=== PATIENT | female | born 1990 ===

== ENCOUNTER 2018-02-11 11:57 | Emergency (ER) | payer OTHER ==
[2018-02-12 02:32] VITALS: BP 142/86
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
== END 2018-02-11 13:30 | disposition home or self-care (01) ==
DX: S16.1XXA Strain of muscle, fascia and tendon at neck level, initial encounter (principal); S20.219A Contusion of unspecified front wall of thorax, initial encounter; S40.011A Contusion of right shoulder, initial encounter; S40.012A Contusion of left shoulder, initial encounter; V49.49XA Driver injured in collision with other motor vehicles in traffic accident, initial encounter; Y92.410 Unspecified street and highway as the place of occurrence of the external cause; Y99.8 Other external cause status; Y93.89 Activity, other specified